=== PATIENT | male | born 1975 | race Caucasian/White ===

== ENCOUNTER 2019-11-26 01:02 | Inpatient (IN) | payer MEDICAID ==
[~2019-11-26] VITALS: Ht 172.7 cm; Wt 125.6 kg
[2019-11-26 01:02] VITALS: BP_SYST 127
[2019-11-26] MEDS ORDERED: ASPIRIN 81 MG TAB.CHEW PO ONE (01:45)
[2019-11-26] MEDS ORDERED: ACETAMINOPHEN 500 MG TABLET PO ONE (03:45)
[2019-11-26 03:54] LABS: BILIRUBIN,URINE 1+ (NEGATIVE); BLOOD, URINE NEGATIVE (NEGATIVE); CLARITY/URINE CLEAR (CLEAR); COLOR,URINE YELLOW (YELLOW); GLUCOSE,URINE NEGATIVE (NEGATIVE); KETONES,URINE NEGATIVE (NEGATIVE); LEUKOCYTE ESTERASE ,URINE NEGATIVE (NEGATIVE); NITRITE, URINE NEGATIVE (NEGATIVE); PROTEIN URINE 2+ (NEGATIVE)
[2019-11-26 04:02] LABS: BACTERIA,URINE RARE /HPF (None Seen); RBC,URINE 0-3 /HPF (0-3); WBC,URINE 0-3 /HPF (0-3)
[2019-11-26] MEDS ORDERED: ASPIRIN 81 MG TAB.CHEW ONE (04:40)
[2019-11-26] MEDS ORDERED: VANCOMYCIN HCL 1,000 MG in NS 250 ML IV ONE (05:15)
[2019-11-26] MEDS ORDERED: AZITHROMYCIN 500 MG in NS 250 ML IV ONE (05:15)
[2019-11-26] MEDS ORDERED: PIPERACILLIN/TAZO 3.375 GM in NS 50 ML IV ONE (05:15)
[2019-11-26] MEDS ORDERED: fentaNYL CITRATE/PF 100 MCG/2 ML AMP IVP ONE (05:30)
[2019-11-26 05:44] LABS: BASOPHILS # (AUTO) 0.1 K/uL (0.0-0.2); BASOPHILS % (AUTO) 0.6 % (0.0-2.0); EOSINOPHILS # (AUTO) 0.1 K/uL (0.0-0.4); EOSINOPHILS % (AUTO) 0.5 % (0.0-4.0); HEMATOCRIT 37.2 % (36-54); HEMOGLOBIN 12.2 g/dL (14.0-18.0); LYMPHOCYTES # (AUTO) 1.4 K/uL (1.0-5.5); LYMPHOCYTES % (AUTO) 12.4 % (20.5-51.5); MEAN CORPUSCULAR HEMOGLOBIN 30 pg (27-31); MEAN CORPUSCULAR HGB CONC 33 % (32-36); MEAN CORPUSCULAR VOLUME 92 fL (79.0-98.0); MONOCYTES # (AUTO) 1.1 K/uL (0.0-1.0); NEUTROPHILS # (AUTO) 8.8 K/uL (1.8-7.7); NEUTROPHILS % (AUTO) 76.5 % (40.0-70.0); PLATELET COUNT (AUTO) 222 K/uL (130-430); RED BLOOD CELL COUNT(AUTO) 4.06 MIL/uL (4.2-6.2); RED CELL DISTRIBUTION WIDTH 13.7 % (9.0-15.0); WHITE BLOOD COUNT (AUTO) 11.5 K/uL (4.8-10.8)
[2019-11-26 05:58] LABS: CALCIUM 8.5 mg/dL (8.4-11.0); CREATININE 1.04 mg/dL (0.55-1.30); POTASSIUM 3.8 mmol/L (3.5-5.1)
[2019-11-26 06:02] LABS: INR 1.5 (0.80-1.20); PROTHROMBIN TIME 14.6 SECS (9.5-12.5)
[2019-11-26 06:13] LABS: ALBUMIN 2.6 g/dL (3.4-4.8); FREE T4 (FREE THYROXINE) 1.5 ng/dl (0.8-1.5); THYROID STIMULATING HORMONE 1.32 uIu/mL (0.36-3.74); TOTAL BILIRUBIN 0.8 mg/dL (0.0-1.0)
[2019-11-26] MEDS ORDERED: AZITHROMYCIN 500 MG/VIAL (ZITHROMAX) IV ONE (06:33)
[2019-11-26] MEDS ORDERED: VANCOMYCIN HCL 1000 MG/VIAL IV ONE (06:34)
[2019-11-26] MEDS ORDERED: PIPERACILLIN/TAZOBACTAM 3.375 GM/VIAL (ZOSYN) IV ONE (06:34)
[2019-11-26] MEDS ORDERED: NACL 0.9% 1,000 ML IV ONE (06:45)
[2019-11-26] MEDS: IPRATROPIUM/ALBUTEROL SULFATE 3 ML AMPUL.NEB (DUONEB) INH SCH ×4 (11:00→23:00)
[2019-11-26] MEDS ORDERED: ACETAMINOPHEN 325 MG TABLET PO PRN (11:15)
[2019-11-26 11:23] VITALS: BP_SYST 116
[2019-11-26 11:30] VITALS: BP_SYST 100
[2019-11-26] MEDS ORDERED: FLU VACC QS2019-20 36MOS UP/PF 60 MCG/0.5 ML SYRINGE I.M. PRN (11:45)
[2019-11-26] MEDS ORDERED: DEXTROSE 50% JECT 50 ML DISP.SYRIN IVP PRN (12:15)
[2019-11-26] MEDS ORDERED: INSULIN REGULAR, HUMAN 100 UNITS/ML, 10 ML VIAL (humuLIN R) SUBCUT PRN (12:15)
[2019-11-26 13:15] LABS: BARBITURATE, URINE NEGATIVE (NEG <=200); BENZODIAZEPINE, URINE NEGATIVE (NEG <=150); CANNABINOID, URINE NEGATIVE (NEG <=50); COCAINE, URINE NEGATIVE (NEG <=150); METHAMPHETAMINES SCREEN,URINE POSITIVE (NEG <=500); OPIATE, URINE POSITIVE (NEG <=100); PHENCYCLIDINE SCREEN,URINE NEGATIVE (NEG <=25); UR TRICYCLIC ANTIDEPRESSANTS NEGATIVE (NEG <=300); URINE AMPHETAMINE POSITIVE (NEG <=500); URINE METHADONE NEGATIVE (NEG <=200); URINE OXYCODONE SCREEN NEGATIVE (NEG <=100); URINE PROPOXYPHENE SCREEN NEGATIVE (NEG <=300)
[2019-11-26] MEDS ORDERED: *LOVENOX 1MG/KG Q12H/PHARMACY XX ONE (13:15)
[2019-11-26 13:20] VITALS: BP_SYST 102
[2019-11-26] MEDS ORDERED: ENOXAPARIN SODIUM 100 MG/ML SYRINGE SUBCUT ONE (13:30)
[2019-11-26 16:20] VITALS: BP_SYST 115
[2019-11-26] MEDS ORDERED: IOHEXOL 350 mgI/mL, 150 ML INFUS..BTL IV ONE (17:32)
[2019-11-26 20:00] VITALS: BP_SYST 99
[2019-11-26] MEDS: HYDROcodone/ACETAMIN 5-325 MG TAB (NORCO/ VICODIN) PO PRN (20:49)
[2019-11-26] MEDS: ONDANSETRON HCL 4 MG/2 ML VIAL IVP PRN (20:50)
[2019-11-26] MEDS ORDERED: ENOXAPARIN SODIUM 40 MG/0.4 ML SYRINGE SUBCUT SCH (21:00)
[2019-11-26] MEDS: ENOXAPARIN SODIUM 100 MG/ML SYRINGE SUBCUT SCH (21:39)
[2019-11-27] VITALS (20 sets, daily range): BP systolic 69–120
[2019-11-27] MEDS: HYDROcodone/ACETAMIN 5-325 MG TAB (NORCO/ VICODIN) PO PRN (00:25)
[2019-11-27] MEDS: LORazepam 2 MG/ML VIAL IVP PRN ×2 (01:51→14:13)
[2019-11-27] MEDS: IPRATROPIUM/ALBUTEROL SULFATE 3 ML AMPUL.NEB (DUONEB) INH SCH ×6 (03:00→23:15)
[2019-11-27] MEDS: ONDANSETRON HCL 4 MG/2 ML VIAL IVP PRN ×2 (06:58→12:38)
[2019-11-27 07:10] LABS: BASOPHILS # (AUTO) 0.1 K/uL (0.0-0.2); BASOPHILS % (AUTO) 1.3 % (0.0-2.0); EOSINOPHILS # (AUTO) 0.1 K/uL (0.0-0.4); EOSINOPHILS % (AUTO) 0.8 % (0.0-4.0); HEMATOCRIT 37.4 % (36-54); HEMOGLOBIN 12.3 g/dL (14.0-18.0); LYMPHOCYTES # (AUTO) 2.6 K/uL (1.0-5.5); LYMPHOCYTES % (AUTO) 24.9 % (20.5-51.5); MEAN CORPUSCULAR HEMOGLOBIN 30 pg (27-31); MEAN CORPUSCULAR HGB CONC 33 % (32-36); MEAN CORPUSCULAR VOLUME 92 fL (79.0-98.0); MONOCYTES # (AUTO) 1.1 K/uL (0.0-1.0); NEUTROPHILS # (AUTO) 6.7 K/uL (1.8-7.7); PLATELET COUNT (AUTO) 246 K/uL (130-430); RED BLOOD CELL COUNT(AUTO) 4.07 MIL/uL (4.2-6.2); RED CELL DISTRIBUTION WIDTH 14.3 % (9.0-15.0); WHITE BLOOD COUNT (AUTO) 10.6 K/uL (4.8-10.8)
[2019-11-27 07:37] LABS: INR 1.4 (0.80-1.20); PROTHROMBIN TIME 13.8 SECS (9.5-12.5)
[2019-11-27 07:40] LABS: ALBUMIN 2.4 g/dL (3.4-4.8); CALCIUM 8.7 mg/dL (8.4-11.0); CREATININE 1.05 mg/dL (0.55-1.30); POTASSIUM 3.8 mmol/L (3.5-5.1); TOTAL BILIRUBIN 0.6 mg/dL (0.0-1.0)
[2019-11-27] MEDS: ENOXAPARIN SODIUM 100 MG/ML SYRINGE SUBCUT SCH (08:23)
[2019-11-27] MEDS ORDERED: FUROSEMIDE 40 MG TABLET PO ONE (11:15)
[2019-11-27] MEDS ORDERED: CARVEDILOL 12.5 MG TABLET (COREG) PO ONE (11:15)
[2019-11-27] MEDS ORDERED: SPIRONOLACTONE 25 MG TABLET (ALDACTONE) PO ONE (11:15)
[2019-11-27] MEDS ORDERED: NS 250 ML IV ONE ×2 (13:45→14:15)
[2019-11-27 14:32] LABS: BASOPHILS # (AUTO) 0.1 K/uL (0.0-0.2); BASOPHILS % (AUTO) 0.8 % (0.0-2.0); EOSINOPHILS # (AUTO) 0.1 K/uL (0.0-0.4); EOSINOPHILS % (AUTO) 1.3 % (0.0-4.0); HEMATOCRIT 40.1 % (36-54); HEMOGLOBIN 13.1 g/dL (14.0-18.0); LYMPHOCYTES # (AUTO) 2.5 K/uL (1.0-5.5); LYMPHOCYTES % (AUTO) 24.3 % (20.5-51.5); MEAN CORPUSCULAR HEMOGLOBIN 31 pg (27-31); MEAN CORPUSCULAR HGB CONC 33 % (32-36); MEAN CORPUSCULAR VOLUME 94 fL (79.0-98.0); MONOCYTES # (AUTO) 1.1 K/uL (0.0-1.0); NEUTROPHILS # (AUTO) 6.5 K/uL (1.8-7.7); NEUTROPHILS % (AUTO) 62.6 % (40.0-70.0); PLATELET COUNT (AUTO) 246 K/uL (130-430); RED BLOOD CELL COUNT(AUTO) 4.28 MIL/uL (4.2-6.2); RED CELL DISTRIBUTION WIDTH 14.4 % (9.0-15.0); WHITE BLOOD COUNT (AUTO) 10.4 K/uL (4.8-10.8)
[2019-11-27 15:04] LABS: CALCIUM 8.7 mg/dL (8.4-11.0); CREATININE 1.3 mg/dL (0.55-1.30); POTASSIUM 3.9 mmol/L (3.5-5.1)
[2019-11-27] MEDS ORDERED: QUEtiapine FUMARATE 25 MG TABLET PO ONE (16:00)
[2019-11-27] MEDS: NOREPINEPHRINE BITARTRATE 4 MG in D5W 246 ML IV PRN (16:26)
[2019-11-27] MEDS ORDERED: NOREPINEPHRINE 4 MG/4 ML VIAL IV ONE (16:29)
[2019-11-27] MEDS ORDERED: PIPERACILLIN/TAZO 3.375/DEX-IS 50 ML IV SCH (20:00)
[2019-11-27] MEDS ORDERED: CARVEDILOL 12.5 MG TABLET (COREG) PO SCH (21:00)
[2019-11-27] MEDS: CARVEDILOL 12.5 MG TABLET (COREG) PO SCH (21:00)
[2019-11-27] MEDS ORDERED: VANCOMYCIN HCL 1 GM/NS PREMIX 250 ML IV ONE (21:00)
[2019-11-27] MEDS ORDERED: VANCOMYCIN HCL 500 MG/VIAL IV ONE (21:48)
[2019-11-27] MEDS: QUEtiapine FUMARATE 25 MG TABLET PO SCH (22:09)
[2019-11-27] MEDS: APIXABAN 2.5 MG TABLET PO SCH (22:32)
[2019-11-27] MEDS ORDERED: VANCOMYCIN HCL 500 MG in NS 100 ML IV ONE (23:00)
[2019-11-28] VITALS (24 sets, daily range): BP systolic 90–128
[2019-11-28] MEDS ORDERED: NOREPINEPHRINE 4 MG/4 ML VIAL IV ONE (02:56)
[2019-11-28] MEDS: IPRATROPIUM/ALBUTEROL SULFATE 3 ML AMPUL.NEB (DUONEB) INH SCH ×6 (02:56→23:00)
[2019-11-28] MEDS: NOREPINEPHRINE BITARTRATE 4 MG in D5W 246 ML IV PRN ×2 (03:59→09:45)
[2019-11-28 06:10] LABS: BASOPHILS # (AUTO) 0.1 K/uL (0.0-0.2); EOSINOPHILS % (AUTO) 0.3 % (0.0-4.0); HEMATOCRIT 36.9 % (36-54); HEMOGLOBIN 12.1 g/dL (14.0-18.0); LYMPHOCYTES # (AUTO) 2.5 K/uL (1.0-5.5); LYMPHOCYTES % (AUTO) 23.7 % (20.5-51.5); MEAN CORPUSCULAR HEMOGLOBIN 30 pg (27-31); MEAN CORPUSCULAR HGB CONC 33 % (32-36); MEAN CORPUSCULAR VOLUME 93 fL (79.0-98.0); MONOCYTES # (AUTO) 1.1 K/uL (0.0-1.0); MONOCYTES % (AUTO) 10.4 % (1.7-9.3); NEUTROPHILS # (AUTO) 6.8 K/uL (1.8-7.7); NEUTROPHILS % (AUTO) 64.6 % (40.0-70.0); PLATELET COUNT (AUTO) 277 K/uL (130-430); RED BLOOD CELL COUNT(AUTO) 3.98 MIL/uL (4.2-6.2); RED CELL DISTRIBUTION WIDTH 14.4 % (9.0-15.0); WHITE BLOOD COUNT (AUTO) 10.5 K/uL (4.8-10.8)
[2019-11-28 06:42] LABS: ALBUMIN 2.3 g/dL (3.4-4.8); CALCIUM 8.3 mg/dL (8.4-11.0); CREATININE 1.35 mg/dL (0.55-1.30); POTASSIUM 4.4 mmol/L (3.5-5.1); TOTAL BILIRUBIN 0.7 mg/dL (0.0-1.0)
[2019-11-28] MEDS: CARVEDILOL 12.5 MG TABLET (COREG) PO SCH ×2 (09:00→21:00)
[2019-11-28] MEDS ORDERED: LISINOPRIL 10 MG TABLET (PRINIVIL) PO SCH (09:00)
[2019-11-28] MEDS ORDERED: FUROSEMIDE 40 MG TABLET PO SCH (09:00)
[2019-11-28] MEDS: APIXABAN 2.5 MG TABLET PO SCH ×2 (09:43→21:47)
[2019-11-28] MEDS: QUEtiapine FUMARATE 25 MG TABLET PO SCH ×3 (09:44→21:45)
[2019-11-28] MEDS: VANCOMYCIN HCL 1,750 MG in NS 500 ML IV SCH ×2 (09:44→21:44)
[2019-11-28] MEDS ORDERED: VANCOMYCIN HCL 1000 MG/VIAL IV ONE (21:48)
[2019-11-29] VITALS (25 sets, daily range): BP systolic 91–128
[2019-11-29] MEDS: IPRATROPIUM/ALBUTEROL SULFATE 3 ML AMPUL.NEB (DUONEB) INH SCH ×6 (03:00→23:00)
[2019-11-29 05:06] LABS: HEPATITIS A AB, IgM Negative (Negative); HEPATITIS B CORE AB, IgM Negative (Negative); HEPATITIS B SURFACE AG Negative (Negative)
[2019-11-29 05:57] LABS: BASOPHILS # (AUTO) 0.1 K/uL (0.0-0.2); BASOPHILS % (AUTO) 1.2 % (0.0-2.0); EOSINOPHILS # (AUTO) 0.2 K/uL (0.0-0.4); EOSINOPHILS % (AUTO) 1.6 % (0.0-4.0); HEMATOCRIT 35.6 % (36-54); HEMOGLOBIN 11.7 g/dL (14.0-18.0); LYMPHOCYTES % (AUTO) 20.5 % (20.5-51.5); MEAN CORPUSCULAR HEMOGLOBIN 30 pg (27-31); MEAN CORPUSCULAR HGB CONC 33 % (32-36); MEAN CORPUSCULAR VOLUME 92 fL (79.0-98.0); MONOCYTES # (AUTO) 1.1 K/uL (0.0-1.0); MONOCYTES % (AUTO) 10.8 % (1.7-9.3); NEUTROPHILS # (AUTO) 6.5 K/uL (1.8-7.7); NEUTROPHILS % (AUTO) 65.9 % (40.0-70.0); PLATELET COUNT (AUTO) 277 K/uL (130-430); RED BLOOD CELL COUNT(AUTO) 3.86 MIL/uL (4.2-6.2); RED CELL DISTRIBUTION WIDTH 14.6 % (9.0-15.0); WHITE BLOOD COUNT (AUTO) 9.9 K/uL (4.8-10.8)
[2019-11-29 06:35] LABS: ALBUMIN 2.2 g/dL (3.4-4.8); CALCIUM 8.5 mg/dL (8.4-11.0); CREATININE 0.98 mg/dL (0.55-1.30); TOTAL BILIRUBIN 0.4 mg/dL (0.0-1.0)
[2019-11-29] MEDS: NOREPINEPHRINE BITARTRATE 4 MG in D5W 246 ML IV PRN (06:46)
[2019-11-29] MEDS: CARVEDILOL 12.5 MG TABLET (COREG) PO SCH ×2 (09:00→21:00)
[2019-11-29] MEDS: QUEtiapine FUMARATE 25 MG TABLET PO SCH ×3 (09:34→21:12)
[2019-11-29] MEDS: VANCOMYCIN HCL 1,750 MG in NS 500 ML IV SCH ×2 (09:34→21:12)
[2019-11-29] MEDS: APIXABAN 2.5 MG TABLET PO SCH ×2 (09:36→21:13)
[2019-11-29] MEDS ORDERED: LACTULOSE 20 GM/30 ML UDC PO ONE (12:00)
[2019-11-30] VITALS (24 sets, daily range): BP systolic 84–123
[2019-11-30] MEDS: HYDROcodone/ACETAMIN 10-325 MG TAB PO PRN ×2 (02:05→06:28)
[2019-11-30] MEDS: IPRATROPIUM/ALBUTEROL SULFATE 3 ML AMPUL.NEB (DUONEB) INH SCH ×2 (03:00→07:45)
[2019-11-30 06:53] LABS: BASOPHILS # (AUTO) 0.1 K/uL (0.0-0.2); BASOPHILS % (AUTO) 0.9 % (0.0-2.0); EOSINOPHILS # (AUTO) 0.2 K/uL (0.0-0.4); EOSINOPHILS % (AUTO) 2.8 % (0.0-4.0); HEMATOCRIT 33.2 % (36-54); LYMPHOCYTES # (AUTO) 1.8 K/uL (1.0-5.5); LYMPHOCYTES % (AUTO) 22.4 % (20.5-51.5); MEAN CORPUSCULAR HEMOGLOBIN 31 pg (27-31); MEAN CORPUSCULAR HGB CONC 33 % (32-36); MEAN CORPUSCULAR VOLUME 93 fL (79.0-98.0); MONOCYTES # (AUTO) 0.7 K/uL (0.0-1.0); NEUTROPHILS # (AUTO) 5.2 K/uL (1.8-7.7); NEUTROPHILS % (AUTO) 64.9 % (40.0-70.0); PLATELET COUNT (AUTO) 250 K/uL (130-430); RED BLOOD CELL COUNT(AUTO) 3.57 MIL/uL (4.2-6.2)
[2019-11-30 07:14] LABS: CALCIUM 8.3 mg/dL (8.4-11.0); CREATININE 1.06 mg/dL (0.55-1.30); POTASSIUM 3.8 mmol/L (3.5-5.1); TOTAL BILIRUBIN 0.4 mg/dL (0.0-1.0)
[2019-11-30] MEDS: APIXABAN 2.5 MG TABLET PO SCH ×2 (08:12→20:46)
[2019-11-30] MEDS: QUEtiapine FUMARATE 25 MG TABLET PO SCH ×3 (08:12→20:45)
[2019-11-30] MEDS: CARVEDILOL 12.5 MG TABLET (COREG) PO SCH ×2 (08:13→21:00)
[2019-11-30] MEDS: LORazepam 2 MG/ML VIAL IVP PRN ×3 (09:27→22:26)
[2019-11-30] MEDS ORDERED: ALBUMIN HUMAN 25% 100 ML IV ONE ×2 (10:30→10:44)
[2019-11-30] MEDS ORDERED: VANCOMYCIN HCL 2,000 MG in NS 500 ML IV SCH (11:00)
[2019-11-30] MEDS: LevALBUTEROL HCL 1.25 MG/0.5 ML *CONC.* VIAL.NEB (XOPENEX CONC.) INH SCH ×2 (13:00→19:00)
[2019-11-30] MEDS: IPRATROPIUM BROM 0.5 MG/2.5 ML VIAL.NEB (ATROVENT) INH SCH ×2 (13:00→19:00)
[2019-11-30] MEDS: TEMAZEPAM 15 MG CAPSULE PO PRN (16:38)
[2019-11-30] MEDS ORDERED: NOREPINEPHRINE 4 MG/4 ML VIAL IV ONE (18:31)
[2019-11-30 20:06] LABS: MYCOPLASMA PNEUMONIAE IgM <770 U/mL (0-769)
[2019-11-30] MEDS: busPIRone HCL 5 MG TABLET PO SCH (20:45)
[2019-11-30] MEDS: DOXYCYCLINE HYCLATE 100 MG CAPSULE PO SCH (20:46)
[2019-11-30] MEDS ORDERED: busPIRone HCL 5 MG TABLET ONE (21:05)
[2019-12-01] VITALS (24 sets, daily range): BP systolic 93–134
[2019-12-01] MEDS: IPRATROPIUM BROM 0.5 MG/2.5 ML VIAL.NEB (ATROVENT) INH SCH ×4 (01:00→19:00)
[2019-12-01] MEDS: LevALBUTEROL HCL 1.25 MG/0.5 ML *CONC.* VIAL.NEB (XOPENEX CONC.) INH SCH ×4 (01:00→19:00)
[2019-12-01] MEDS: NOREPINEPHRINE BITARTRATE 4 MG in D5W 246 ML IV PRN ×3 (03:57→16:17)
[2019-12-01 06:57] LABS: ALBUMIN 2.5 g/dL (3.4-4.8); BASOPHILS # (AUTO) 0.1 K/uL (0.0-0.2); BASOPHILS % (AUTO) 0.8 % (0.0-2.0); BILIRUBIN,DIRECT 0.3 mg/dL (0.0-0.3); CALCIUM 8.7 mg/dL (8.4-11.0); CREATININE 1.59 mg/dL (0.55-1.30); EOSINOPHILS # (AUTO) 0.1 K/uL (0.0-0.4); EOSINOPHILS % (AUTO) 0.8 % (0.0-4.0); HEMATOCRIT 34.6 % (36-54); HEMOGLOBIN 11.4 g/dL (14.0-18.0); LYMPHOCYTES # (AUTO) 1.8 K/uL (1.0-5.5); LYMPHOCYTES % (AUTO) 16.6 % (20.5-51.5); MEAN CORPUSCULAR HEMOGLOBIN 30 pg (27-31); MEAN CORPUSCULAR HGB CONC 33 % (32-36); MEAN CORPUSCULAR VOLUME 92 fL (79.0-98.0); MONOCYTES # (AUTO) 1.2 K/uL (0.0-1.0); MONOCYTES % (AUTO) 11.4 % (1.7-9.3); NEUTROPHILS # (AUTO) 7.5 K/uL (1.8-7.7); NEUTROPHILS % (AUTO) 70.4 % (40.0-70.0); PLATELET COUNT (AUTO) 278 K/uL (130-430); POTASSIUM 4.4 mmol/L (3.5-5.1); RED BLOOD CELL COUNT(AUTO) 3.76 MIL/uL (4.2-6.2); RED CELL DISTRIBUTION WIDTH 14.1 % (9.0-15.0); WHITE BLOOD COUNT (AUTO) 10.6 K/uL (4.8-10.8)
[2019-12-01] MEDS ORDERED: DIATR MEGLU/DIATRIZ SOD 30 ML SOLUTION PO ONE (07:56)
[2019-12-01] MEDS ORDERED: IOHEXOL 100 ML IV ONE (07:57)
[2019-12-01] MEDS: APIXABAN 2.5 MG TABLET PO SCH ×2 (08:22→22:14)
[2019-12-01] MEDS: DOXYCYCLINE HYCLATE 100 MG CAPSULE PO SCH ×2 (08:23→22:12)
[2019-12-01] MEDS: QUEtiapine FUMARATE 25 MG TABLET PO SCH ×3 (08:23→22:12)
[2019-12-01] MEDS: busPIRone HCL 5 MG TABLET PO SCH ×2 (08:23→22:13)
[2019-12-01] MEDS: CARVEDILOL 12.5 MG TABLET (COREG) PO SCH (08:25)
[2019-12-01] MEDS: FLUDROCORTISONE ACETATE 0.1 MG TABLET( FLORINEF) PO SCH (11:00)
[2019-12-01] MEDS: NACL 0.9% 1,000 ML IV SCH (12:19)
[2019-12-01] MEDS ORDERED: FLUDROCORTISONE ACETATE 0.1 MG TABLET( FLORINEF) PO ONE (12:30)
[2019-12-01] MEDS: CARVEDILOL 3.125 MG TABLET (COREG) PO SCH (21:00)
[2019-12-02] VITALS (23 sets, daily range): BP systolic 87–115
[2019-12-02] MEDS: ONDANSETRON HCL 4 MG/2 ML VIAL IVP PRN (00:30)
[2019-12-02] MEDS: NOREPINEPHRINE BITARTRATE 4 MG in D5W 246 ML IV PRN ×3 (00:31→20:35)
[2019-12-02] MEDS: NACL 0.9% 1,000 ML IV SCH (05:28)
[2019-12-02 06:03] LABS: BASOPHILS % (AUTO) 0.4 % (0.0-2.0); EOSINOPHILS # (AUTO) 0.2 K/uL (0.0-0.4); EOSINOPHILS % (AUTO) 2.3 % (0.0-4.0); HEMATOCRIT 33.8 % (36-54); HEMOGLOBIN 11.1 g/dL (14.0-18.0); LYMPHOCYTES # (AUTO) 1.5 K/uL (1.0-5.5); LYMPHOCYTES % (AUTO) 16.6 % (20.5-51.5); MEAN CORPUSCULAR HEMOGLOBIN 30 pg (27-31); MEAN CORPUSCULAR HGB CONC 33 % (32-36); MEAN CORPUSCULAR VOLUME 92 fL (79.0-98.0); MONOCYTES % (AUTO) 11.7 % (1.7-9.3); NEUTROPHILS # (AUTO) 6.1 K/uL (1.8-7.7); PLATELET COUNT (AUTO) 253 K/uL (130-430); RED BLOOD CELL COUNT(AUTO) 3.66 MIL/uL (4.2-6.2); RED CELL DISTRIBUTION WIDTH 14.4 % (9.0-15.0); WHITE BLOOD COUNT (AUTO) 8.9 K/uL (4.8-10.8)
[2019-12-02 06:32] LABS: ALBUMIN 2.4 g/dL (3.4-4.8); CALCIUM 8.4 mg/dL (8.4-11.0); CREATININE 1.15 mg/dL (0.55-1.30); POTASSIUM 4.2 mmol/L (3.5-5.1); TOTAL BILIRUBIN 0.7 mg/dL (0.0-1.0)
[2019-12-02] MEDS: LevALBUTEROL HCL 1.25 MG/0.5 ML *CONC.* VIAL.NEB (XOPENEX CONC.) INH SCH ×3 (07:00→19:00)
[2019-12-02] MEDS: IPRATROPIUM BROM 0.5 MG/2.5 ML VIAL.NEB (ATROVENT) INH SCH ×3 (07:00→19:00)
[2019-12-02] MEDS: QUEtiapine FUMARATE 25 MG TABLET PO SCH ×3 (08:54→20:25)
[2019-12-02] MEDS: busPIRone HCL 5 MG TABLET PO SCH ×2 (08:54→20:26)
[2019-12-02] MEDS: CARVEDILOL 3.125 MG TABLET (COREG) PO SCH ×2 (08:54→20:36)
[2019-12-02] MEDS: DOXYCYCLINE HYCLATE 100 MG CAPSULE PO SCH ×2 (08:54→20:32)
[2019-12-02] MEDS: FLUDROCORTISONE ACETATE 0.1 MG TABLET( FLORINEF) PO SCH ×2 (08:54→20:25)
[2019-12-02] MEDS: APIXABAN 2.5 MG TABLET PO SCH ×2 (08:55→20:27)
[2019-12-02] MEDS: LORazepam 2 MG/ML VIAL IVP PRN ×3 (09:07→22:31)
[2019-12-02] MEDS ORDERED: VITAMIN B COMPLEX WITH C TAB/CAP PO ONE (14:15)
[2019-12-02] MEDS ORDERED: CHOLECALCIFEROL (VITAMIN D3) 2,000 UNIT TABLET PO ONE (14:30)
[2019-12-02] MEDS: MIDODRINE HCL 5 MG TABLET (PROAMATINE) PO SCH ×2 (15:02→20:30)
[2019-12-02] MEDS: VITAMIN B COMPLEX WITH C TAB/CAP PO SCH (20:36)
[2019-12-03] VITALS (26 sets, daily range): BP systolic 88–129
[2019-12-03] MEDS: NACL 0.9% 1,000 ML IV SCH ×2 (03:03→23:00)
[2019-12-03] MEDS: NOREPINEPHRINE BITARTRATE 4 MG in D5W 246 ML IV PRN ×3 (04:33→16:55)
[2019-12-03 07:15] LABS: BASOPHILS # (AUTO) 0.1 K/uL (0.0-0.2); BASOPHILS % (AUTO) 0.7 % (0.0-2.0); EOSINOPHILS # (AUTO) 0.3 K/uL (0.0-0.4); EOSINOPHILS % (AUTO) 3.3 % (0.0-4.0); HEMOGLOBIN 11.1 g/dL (14.0-18.0); LYMPHOCYTES # (AUTO) 1.7 K/uL (1.0-5.5); LYMPHOCYTES % (AUTO) 20.6 % (20.5-51.5); MEAN CORPUSCULAR HEMOGLOBIN 30 pg (27-31); MEAN CORPUSCULAR HGB CONC 33 % (32-36); MEAN CORPUSCULAR VOLUME 92 fL (79.0-98.0); MONOCYTES # (AUTO) 0.8 K/uL (0.0-1.0); MONOCYTES % (AUTO) 9.9 % (1.7-9.3); NEUTROPHILS # (AUTO) 5.3 K/uL (1.8-7.7); NEUTROPHILS % (AUTO) 65.5 % (40.0-70.0); PLATELET COUNT (AUTO) 234 K/uL (130-430); RED BLOOD CELL COUNT(AUTO) 3.69 MIL/uL (4.2-6.2); RED CELL DISTRIBUTION WIDTH 14.1 % (9.0-15.0); WHITE BLOOD COUNT (AUTO) 8.1 K/uL (4.8-10.8)
[2019-12-03 07:27] LABS: INR 1.4 (0.80-1.20); PROTHROMBIN TIME 14.1 SECS (9.5-12.5)
[2019-12-03 07:28] LABS: ALBUMIN 2.3 g/dL (3.4-4.8); CALCIUM 8.4 mg/dL (8.4-11.0); POTASSIUM 3.9 mmol/L (3.5-5.1); TOTAL BILIRUBIN 0.7 mg/dL (0.0-1.0)
[2019-12-03] MEDS: IPRATROPIUM BROM 0.5 MG/2.5 ML VIAL.NEB (ATROVENT) INH SCH ×3 (08:20→19:00)
[2019-12-03] MEDS: LevALBUTEROL HCL 1.25 MG/0.5 ML *CONC.* VIAL.NEB (XOPENEX CONC.) INH SCH ×3 (08:20→19:00)
[2019-12-03] MEDS ORDERED: CHOLECALCIFEROL (VITAMIN D3) 2,000 UNIT TABLET PO SCH (09:00)
[2019-12-03] MEDS: CARVEDILOL 3.125 MG TABLET (COREG) PO SCH ×2 (09:00→22:56)
[2019-12-03] MEDS: FLUDROCORTISONE ACETATE 0.1 MG TABLET( FLORINEF) PO SCH ×3 (09:35→22:55)
[2019-12-03] MEDS: APIXABAN 2.5 MG TABLET PO SCH ×2 (09:36→22:57)
[2019-12-03] MEDS: VITAMIN B COMPLEX WITH C TAB/CAP PO SCH ×2 (09:37→22:55)
[2019-12-03] MEDS: busPIRone HCL 5 MG TABLET PO SCH ×2 (09:37→22:56)
[2019-12-03] MEDS: QUEtiapine FUMARATE 25 MG TABLET PO SCH ×3 (09:38→22:56)
[2019-12-03] MEDS: DOXYCYCLINE HYCLATE 100 MG CAPSULE PO SCH ×2 (09:38→22:57)
[2019-12-03] MEDS: MIDODRINE HCL 5 MG TABLET (PROAMATINE) PO SCH ×2 (09:38→22:56)
[2019-12-03] MEDS: LORazepam 2 MG/ML VIAL IVP PRN (09:59)
[2019-12-03] MEDS: ONDANSETRON HCL 4 MG/2 ML VIAL IVP PRN (10:00)
[2019-12-03] MEDS: HYDROcodone/ACETAMIN 5-325 MG TAB (NORCO/ VICODIN) PO PRN (10:01)
[2019-12-04] VITALS (19 sets, daily range): BP systolic 94–130
[2019-12-04] MEDS: LORazepam 2 MG/ML VIAL IVP PRN ×3 (00:06→14:38)
[2019-12-04] MEDS: DOXYCYCLINE HYCLATE 100 MG CAPSULE PO SCH ×2 (00:30→09:28)
[2019-12-04] MEDS: VITAMIN B COMPLEX WITH C TAB/CAP PO SCH ×2 (00:30→09:28)
[2019-12-04] MEDS: NOREPINEPHRINE BITARTRATE 4 MG in D5W 246 ML IV PRN (00:43)
[2019-12-04] MEDS: TEMAZEPAM 15 MG CAPSULE PO PRN (00:58)
[2019-12-04] MEDS: IPRATROPIUM BROM 0.5 MG/2.5 ML VIAL.NEB (ATROVENT) INH SCH ×4 (01:00→19:49)
[2019-12-04] MEDS: LevALBUTEROL HCL 1.25 MG/0.5 ML *CONC.* VIAL.NEB (XOPENEX CONC.) INH SCH ×4 (01:00→19:50)
[2019-12-04] MEDS: busPIRone HCL 5 MG TABLET PO SCH ×2 (09:27→22:20)
[2019-12-04] MEDS: FLUDROCORTISONE ACETATE 0.1 MG TABLET( FLORINEF) PO SCH ×3 (09:27→22:20)
[2019-12-04] MEDS: MIDODRINE HCL 5 MG TABLET (PROAMATINE) PO SCH ×3 (09:28→22:19)
[2019-12-04] MEDS: APIXABAN 2.5 MG TABLET PO SCH ×2 (09:31→22:21)
[2019-12-04] MEDS: CARVEDILOL 3.125 MG TABLET (COREG) PO SCH ×2 (09:36→22:22)
[2019-12-04] MEDS: ONDANSETRON HCL 4 MG/2 ML VIAL IVP PRN (09:50)
[2019-12-04] MEDS: QUEtiapine FUMARATE 25 MG TABLET PO SCH ×3 (09:53→22:21)
[2019-12-04] MEDS ORDERED: CHOLECALCIFEROL (VITAMIN D3) 2,000 UNIT TABLET PO ONE (10:00)
[2019-12-05 00:56] VITALS: BP_SYST 111
[2019-12-05] MEDS: IPRATROPIUM BROM 0.5 MG/2.5 ML VIAL.NEB (ATROVENT) INH SCH ×4 (01:00→19:00)
[2019-12-05] MEDS: LevALBUTEROL HCL 1.25 MG/0.5 ML *CONC.* VIAL.NEB (XOPENEX CONC.) INH SCH ×4 (01:55→19:00)
[2019-12-05 07:43] VITALS: BP_SYST 113
[2019-12-05] MEDS: busPIRone HCL 5 MG TABLET PO SCH ×2 (08:32→20:54)
[2019-12-05] MEDS: VITAMIN B COMPLEX WITH C TAB/CAP PO SCH ×2 (08:32→21:00)
[2019-12-05] MEDS: MIDODRINE HCL 5 MG TABLET (PROAMATINE) PO SCH ×3 (08:33→20:55)
[2019-12-05] MEDS: DOXYCYCLINE HYCLATE 100 MG CAPSULE PO SCH ×2 (08:33→20:56)
[2019-12-05] MEDS: QUEtiapine FUMARATE 25 MG TABLET PO SCH ×3 (08:33→20:55)
[2019-12-05] MEDS: CHOLECALCIFEROL (VITAMIN D3) 2,000 UNIT TABLET PO SCH (08:34)
[2019-12-05] MEDS: CARVEDILOL 3.125 MG TABLET (COREG) PO SCH ×2 (08:34→21:00)
[2019-12-05] MEDS: FLUDROCORTISONE ACETATE 0.1 MG TABLET( FLORINEF) PO SCH ×3 (08:34→20:56)
[2019-12-05] MEDS: APIXABAN 2.5 MG TABLET PO SCH ×2 (08:36→20:59)
[2019-12-05] MEDS: LORazepam 2 MG/ML VIAL IVP PRN (08:44)
[2019-12-05 11:18] LABS: COCCIDIOIDES AB COMPLEMENT FIX None Detected (NEGATIVE)
[2019-12-05 11:35] VITALS: BP_SYST 95
[2019-12-05] MEDS: HYDROcodone/ACETAMIN 10-325 MG TAB PO PRN ×2 (11:59→20:57)
[2019-12-05 15:03] VITALS: BP_SYST 113
[2019-12-05 15:30] VITALS: BP_SYST 142
[2019-12-05 17:30] LABS: BASOPHILS # (AUTO) 0.1 K/uL (0.0-0.2); BASOPHILS % (AUTO) 1.1 % (0.0-2.0); EOSINOPHILS # (AUTO) 0.3 K/uL (0.0-0.4); EOSINOPHILS % (AUTO) 3.3 % (0.0-4.0); HEMATOCRIT 33.9 % (36-54); HEMOGLOBIN 10.9 g/dL (14.0-18.0); LYMPHOCYTES # (AUTO) 1.8 K/uL (1.0-5.5); LYMPHOCYTES % (AUTO) 22.9 % (20.5-51.5); MEAN CORPUSCULAR HEMOGLOBIN 30 pg (27-31); MEAN CORPUSCULAR HGB CONC 32 % (32-36); MEAN CORPUSCULAR VOLUME 93 fL (79.0-98.0); MONOCYTES % (AUTO) 12.4 % (1.7-9.3); NEUTROPHILS # (AUTO) 4.7 K/uL (1.8-7.7); NEUTROPHILS % (AUTO) 60.3 % (40.0-70.0); PLATELET COUNT (AUTO) 239 K/uL (130-430); RED BLOOD CELL COUNT(AUTO) 3.66 MIL/uL (4.2-6.2); RED CELL DISTRIBUTION WIDTH 14.6 % (9.0-15.0); WHITE BLOOD COUNT (AUTO) 7.8 K/uL (4.8-10.8)
[2019-12-05 17:33] LABS: CALCIUM 8.3 mg/dL (8.4-11.0); CREATININE 1.08 mg/dL (0.55-1.30); POTASSIUM 4.3 mmol/L (3.5-5.1)
[2019-12-05 17:39] LABS: ALBUMIN 2.3 g/dL (3.4-4.8); TOTAL BILIRUBIN 0.6 mg/dL (0.0-1.0)
[2019-12-05 20:15] VITALS: BP_SYST 97
[2019-12-05] MEDS: TEMAZEPAM 15 MG CAPSULE PO PRN (20:58)
[2019-12-06] MEDS: IPRATROPIUM BROM 0.5 MG/2.5 ML VIAL.NEB (ATROVENT) INH SCH ×4 (01:00→19:00)
[2019-12-06] MEDS: LevALBUTEROL HCL 1.25 MG/0.5 ML *CONC.* VIAL.NEB (XOPENEX CONC.) INH SCH ×4 (01:00→19:00)
[2019-12-06 04:05] VITALS: BP_SYST 97
[2019-12-06 06:59] LABS: BASOPHILS # (AUTO) 0.1 K/uL (0.0-0.2); BASOPHILS % (AUTO) 1.2 % (0.0-2.0); EOSINOPHILS # (AUTO) 0.3 K/uL (0.0-0.4); EOSINOPHILS % (AUTO) 3.4 % (0.0-4.0); HEMOGLOBIN 11.2 g/dL (14.0-18.0); LYMPHOCYTES # (AUTO) 1.5 K/uL (1.0-5.5); LYMPHOCYTES % (AUTO) 19.3 % (20.5-51.5); MEAN CORPUSCULAR HEMOGLOBIN 30 pg (27-31); MEAN CORPUSCULAR HGB CONC 32 % (32-36); MEAN CORPUSCULAR VOLUME 92 fL (79.0-98.0); MONOCYTES # (AUTO) 0.7 K/uL (0.0-1.0); MONOCYTES % (AUTO) 9.2 % (1.7-9.3); NEUTROPHILS # (AUTO) 5.1 K/uL (1.8-7.7); NEUTROPHILS % (AUTO) 66.9 % (40.0-70.0); PLATELET COUNT (AUTO) 241 K/uL (130-430); RED BLOOD CELL COUNT(AUTO) 3.79 MIL/uL (4.2-6.2); RED CELL DISTRIBUTION WIDTH 14.5 % (9.0-15.0); WHITE BLOOD COUNT (AUTO) 7.7 K/uL (4.8-10.8)
[2019-12-06 07:22] LABS: ALBUMIN 2.3 g/dL (3.4-4.8); CALCIUM 8.3 mg/dL (8.4-11.0); CREATININE 1.1 mg/dL (0.55-1.30); TOTAL BILIRUBIN 0.6 mg/dL (0.0-1.0)
[2019-12-06 07:45] VITALS: BP_SYST 124
[2019-12-06] MEDS: VITAMIN B COMPLEX WITH C TAB/CAP PO SCH ×2 (09:00→21:00)
[2019-12-06] MEDS: MIDODRINE HCL 5 MG TABLET (PROAMATINE) PO SCH ×3 (09:28→20:54)
[2019-12-06] MEDS: busPIRone HCL 5 MG TABLET PO SCH ×2 (09:28→20:54)
[2019-12-06] MEDS: DOXYCYCLINE HYCLATE 100 MG CAPSULE PO SCH ×2 (09:28→20:54)
[2019-12-06] MEDS: HYDROcodone/ACETAMIN 5-325 MG TAB (NORCO/ VICODIN) PO PRN ×2 (09:28→17:23)
[2019-12-06] MEDS: CHOLECALCIFEROL (VITAMIN D3) 2,000 UNIT TABLET PO SCH (09:28)
[2019-12-06] MEDS: QUEtiapine FUMARATE 25 MG TABLET PO SCH ×3 (09:28→20:54)
[2019-12-06] MEDS: FLUDROCORTISONE ACETATE 0.1 MG TABLET( FLORINEF) PO SCH ×3 (09:28→20:54)
[2019-12-06] MEDS: APIXABAN 2.5 MG TABLET PO SCH ×2 (09:30→20:55)
[2019-12-06] MEDS ORDERED: FUROSEMIDE 40 MG/4 ML VIAL IVP ONE (09:45)
[2019-12-06 11:40] VITALS: BP_SYST 110
[2019-12-06] MEDS ORDERED: MIDO5TAB PO (15:01)
[2019-12-06] MEDS ORDERED: COR3.125 PO (15:01)
[2019-12-06] MEDS ORDERED: FLOR.1 PO (15:01)
[2019-12-06] MEDS ORDERED: BUSP5TAB3 PO (15:01)
[2019-12-06] MEDS ORDERED: APIX2.5T PO (15:01)
[2019-12-06] MEDS ORDERED: SER25 PO (15:01)
[2019-12-06] MEDS ORDERED: FURO10VI27 IVP (15:01)
[2019-12-06 17:00] VITALS: BP_SYST 115
[2019-12-06 19:38] VITALS: BP_SYST 96
[2019-12-06] MEDS: CARVEDILOL 3.125 MG TABLET (COREG) PO SCH (20:59)
[2019-12-07 00:15] VITALS: BP_SYST 103
[2019-12-07] MEDS: LevALBUTEROL HCL 1.25 MG/0.5 ML *CONC.* VIAL.NEB (XOPENEX CONC.) INH SCH ×4 (01:00→19:00)
[2019-12-07] MEDS: IPRATROPIUM BROM 0.5 MG/2.5 ML VIAL.NEB (ATROVENT) INH SCH ×4 (01:00→19:00)
[2019-12-07 08:05] VITALS: BP_SYST 98
[2019-12-07] MEDS: CHOLECALCIFEROL (VITAMIN D3) 2,000 UNIT TABLET PO SCH (08:25)
[2019-12-07] MEDS: FUROSEMIDE 40 MG/4 ML VIAL IVP SCH (08:25)
[2019-12-07] MEDS: FLUDROCORTISONE ACETATE 0.1 MG TABLET( FLORINEF) PO SCH ×3 (08:26→21:56)
[2019-12-07] MEDS: MIDODRINE HCL 5 MG TABLET (PROAMATINE) PO SCH ×3 (08:26→21:56)
[2019-12-07] MEDS: VITAMIN B COMPLEX WITH C TAB/CAP PO SCH ×2 (08:26→22:09)
[2019-12-07] MEDS: QUEtiapine FUMARATE 25 MG TABLET PO SCH ×3 (08:26→21:55)
[2019-12-07] MEDS: busPIRone HCL 5 MG TABLET PO SCH ×2 (08:26→21:57)
[2019-12-07] MEDS: DOXYCYCLINE HYCLATE 100 MG CAPSULE PO SCH (08:26)
[2019-12-07] MEDS: APIXABAN 2.5 MG TABLET PO SCH ×2 (08:27→22:05)
[2019-12-07] MEDS: CARVEDILOL 3.125 MG TABLET (COREG) PO SCH ×2 (08:30→21:57)
[2019-12-07] MEDS ORDERED: traMADol HCL HCL 50 MG TABLET (ULTRAM) PO PRN (10:00)
[2019-12-07 12:47] VITALS: BP_SYST 95
[2019-12-07 16:38] VITALS: BP_SYST 100
[2019-12-07] MEDS ORDERED: COMMUNICATION ORDER XX ONE (17:15)
[2019-12-07 20:00] VITALS: BP_SYST 113
[2019-12-07] MEDS: LORazepam 2 MG/ML VIAL IVP PRN (22:23)
[2019-12-08] VITALS: BP_SYST 98
[2019-12-08] MEDS: IPRATROPIUM BROM 0.5 MG/2.5 ML VIAL.NEB (ATROVENT) INH SCH ×2 (01:00→07:00)
[2019-12-08] MEDS: LevALBUTEROL HCL 1.25 MG/0.5 ML *CONC.* VIAL.NEB (XOPENEX CONC.) INH SCH ×2 (01:00→07:00)
[2019-12-08] MEDS: LORazepam 2 MG/ML VIAL IVP PRN (05:29)
[2019-12-08 08:00] VITALS: BP_SYST 119
[2019-12-08] MEDS: QUEtiapine FUMARATE 25 MG TABLET PO SCH (09:02)
[2019-12-08] MEDS: MIDODRINE HCL 5 MG TABLET (PROAMATINE) PO SCH (09:05)
[2019-12-08] MEDS: busPIRone HCL 5 MG TABLET PO SCH (09:06)
[2019-12-08] MEDS: APIXABAN 2.5 MG TABLET PO SCH (09:06)
[2019-12-08] MEDS: VITAMIN B COMPLEX WITH C TAB/CAP PO SCH (09:07)
[2019-12-08] MEDS: CARVEDILOL 3.125 MG TABLET (COREG) PO SCH (09:07)
[2019-12-08] MEDS: CHOLECALCIFEROL (VITAMIN D3) 2,000 UNIT TABLET PO SCH (09:07)
[2019-12-08] MEDS: FLUDROCORTISONE ACETATE 0.1 MG TABLET( FLORINEF) PO SCH (09:08)
[2019-12-08] MEDS: FUROSEMIDE 40 MG/4 ML VIAL IVP SCH (09:08)
[2019-12-08 11:37] VITALS: BP_SYST 115
[2019-12-08 13:28] VITALS: BP_SYST 122
== END 2019-12-08 12:20 | disposition home or self-care (01) | DRG 720 ==
LOC: SED 01:02 → STU 07:56 → SIC 11-27 14:33 → STU 12-04 16:59
PROVIDERS: ADMIT Internal Medicine; ATTEND Internal Medicine
PROC: 02HV33Z Insertion of Infusion Device into Superior Vena Cava, Percutaneous Approach (ICD-10-PCS; principal; 2019-11-28)
PROC: B548ZZA Ultrasonography of Superior Vena Cava, Guidance (ICD-10-PCS; 2019-11-28)
DX: A41.9 Sepsis, unspecified organism (principal); R57.0 Cardiogenic shock; I26.99 Other pulmonary embolism without acute cor pulmonale; E43 Unspecified severe protein-calorie malnutrition; I50.43 Acute on chronic combined systolic (congestive) and diastolic (congestive) heart failure; D68.59 Other primary thrombophilia; J18.9 Pneumonia, unspecified organism; E66.01 Morbid (severe) obesity due to excess calories; J91.8 Pleural effusion in other conditions classified elsewhere; E87.1 Hypo-osmolality and hyponatremia; F15.10 Other stimulant abuse, uncomplicated; F32.9 Major depressive disorder, single episode, unspecified; R26.9 Unspecified abnormalities of gait and mobility; F41.9 Anxiety disorder, unspecified; D63.8 Anemia in other chronic diseases classified elsewhere; I42.0 Dilated cardiomyopathy; R18.8 Other ascites; I80.3 Phlebitis and thrombophlebitis of lower extremities, unspecified; I25.5 Ischemic cardiomyopathy; Z87.891 Personal history of nicotine dependence; Z83.3 Family history of diabetes mellitus; Z79.01 Long term (current) use of anticoagulants; Z88.0 Allergy status to penicillin; Z68.41 Body mass index [BMI] 40.0-44.9, adult; Z79.899 Other long term (current) drug therapy; Z71.51 Drug abuse counseling and surveillance of drug abuser
CPT/HCPCS: 36415; 70450-TC; 71045; 71275; 76700-TC; 80048; 80053; 80074; 80076; 80202-TC; 80307; 81000-TC; 82105; 82140-TC; 82533; 82550-TC; 82962; 83605; 83735-TC; 83880; 84439; 84443-TC; 84484; 85025; 85379; 85610-TC; 85651-TC; 85730-TC; 86592; 86635; 86710; 86738; 87040-TC; 87081; 87449; 93005; 93306; 93970; 94640; 94760; 96365; 96366; 96368; 96375; 97110-GP; 97530-GP; 99285; C1751; G0378; J0456; J1650; J1815; J1940; J1956; J2060; J2405; J2543; J3010; J3370; J7030; J7040; J7050; J7060; J7612; P9046; Q9964; Q9967